=== PATIENT | female | born 1960 | race Two or more races ===

== ENCOUNTER 2020-01-06 10:50 | Emergency (ER) | payer OTHER ==
[~2020-01-06] VITALS: Ht 157.5 cm; Wt 65.5 kg
[2020-01-06 11:04] VITALS: BP 135/85
--- NOTE | 2020-01-06 12:00 | NUR ---
pt given dc instructions once nasal packing removed by JEAN-PIERRE Hightower. no bleeding noted in ED. pt a&o, resps even and unlabored, nadn. pt ambulatory to dc desk with steady gait.
== END 2020-01-06 12:01 | disposition home or self-care (01) ==
LOC: ED 11:32
DX: R04.0 Epistaxis (principal); R51.9 Headache, unspecified
CPT/HCPCS: 99281